=== PATIENT | male | born 1995 | race Two or more races ===

== ENCOUNTER 2020-03-20 03:06 | Emergency (ER) | payer MEDICAID, OTHER ==
[~2020-03-20] VITALS: Ht 177.8 cm; Wt 81.6 kg
== END 2020-03-20 03:30 ==
LOC: ER 03:06
DX: S00.512A Abrasion of oral cavity, initial encounter (principal); V43.52XA Car driver injured in collision with other type car in traffic accident, initial encounter; Y93.89 Activity, other specified; Y92.488 Other paved roadways as the place of occurrence of the external cause; Y99.8 Other external cause status